=== PATIENT | female | born 1985 | race Two or more races ===

== ENCOUNTER 2018-01-07 10:03 | Emergency (ER) | payer MEDICAID ==
[~2018-01-07] VITALS: Ht 170.2 cm; Wt 90.7 kg
[2018-01-07] MEDS ORDERED: cefTRIAXone SODIUM 250 MG VL IM ONE (14:30)
[2018-01-07] MEDS ORDERED: AZITHROMYCIN 250 MG TAB PO ONE (14:30)
[2018-01-07 15:06] VITALS: BP 117/80
[2018-01-07 15:16] LABS: Urine Bacteria FEW /hpf (None Seen); Urine Blood Negative /uL (Negative); Urine Mucus FEW (None Seen); Urine Specific Gravity 1.038 (1.001-1.035); Urine WBC 174 /hpf (0 - 5)
== END 2018-01-07 16:52 | disposition home or self-care (01) ==
LOC: ER 10:06
DX: N39.0 Urinary tract infection, site not specified (principal); N76.0 Acute vaginitis
CPT/HCPCS: 81001; 81025; 87210; 96372; 99284; J0696